=== PATIENT | male | born 1975 | race Hispanic/Latino ===

== ENCOUNTER 2018-02-07 12:13 | Emergency (ER) | payer SELFPAY ==
[~2018-02-07 12:13] MED LIST: AMLO1CAP12 PO; GLYB-228 PO; HYDR12.54 PO; LEVE750T4 PO
[2018-02-07] MEDS ORDERED: SODIUM CHLORIDE 0.9% 1000ML 1,000 ML IV ONE (12:55)
[2018-02-07] MEDS ORDERED: ONDANSETRON HCL MDV 20ML 2 MG/ML VIAL ONE (12:55)
[2018-02-07] MEDS ORDERED: MORPHINE SULFATE 4 MG/1ML SYG ONE ×2 (12:55→17:33)
[2018-02-07 13:17] LABS: BASOPHILS % (AUTO) 0.3 % (0.0-5.0); EOSINOPHILS % (AUTO) 0.2 % (0.0-8.0); HEMATOCRIT 45.6 % (42-54); LYMPHOCYTES % (AUTO) 8.3 % (21.0-51.0); MEAN CORPUSCULAR HEMOGLOBIN 32.1 pg (27.0-33.0); MEAN CORPUSCULAR HGB CONC 35.8 g/dL (32.0-36.0); MEAN CORPUSCULAR VOLUME 89.6 fL (79-99); NEUTROPHILS % (AUTO) 86.2 % (40.0-77.0); PLATELET COUNT (AUTO) 287 K/uL (130-400); RED BLOOD CELL COUNT(AUTO) 5.08 MIL/uL (4.50-6.20); RED CELL DISTRIBUTION WIDTH 13.1 % (11.0-15.5); WHITE BLOOD COUNT (AUTO) 13.3 K/uL (4.8-10.8)
[2018-02-07 13:31] LABS: ALBUMIN 3.9 g/dL (3.5-5.0); BILIRUBIN,TOTAL 0.9 mg/dL (0.2-1.0); CREATININE 1.1 mg/dL (0.5-1.5); POTASSIUM 4.4 mmol/L (3.5-5.1); TOTAL PROTEIN, SERUM 7.1 g/dL (6.0-8.3)
[2018-02-07] MEDS ORDERED: KETOROLAC TROMETHAMINE 15MG/ML ONE (16:24)
== END 2018-02-07 18:54 | disposition home or self-care (01) ==
LOC: EDH 12:13
DX: S43.101A Unspecified dislocation of right acromioclavicular joint, initial encounter (principal); S00.83XA Contusion of other part of head, initial encounter; G40.89 Other seizures; I10 Essential (primary) hypertension; E11.9 Type 2 diabetes mellitus without complications; E78.5 Hyperlipidemia, unspecified; W18.39XA Other fall on same level, initial encounter; Y93.89 Activity, other specified; Y92.89 Other specified places as the place of occurrence of the external cause; Y99.8 Other external cause status
CPT/HCPCS: 36415; 70450; 73030; 73200; 80053; 80177; 85025; 96361; 96372; 96374; 96375; 99285; J1885; J2270 ×2; J7030

== ENCOUNTER 2018-07-21 16:59 | Emergency (ER) | payer OTHER ==
[2018-07-21] MEDS ORDERED: ACETAMINOPHEN-CODEINE 300/30MG TAB ONE (17:35)
[2018-07-21] MEDS ORDERED: KETOROLAC TROMETHAMINE 60 MG/2 ML VIAL ONE (17:35)
== END 2018-07-21 17:55 | disposition home or self-care (01) ==
LOC: EDH 16:59
DX: K08.89 Other specified disorders of teeth and supporting structures (principal); E11.9 Type 2 diabetes mellitus without complications; E78.5 Hyperlipidemia, unspecified; I10 Essential (primary) hypertension
CPT/HCPCS: 96372; 99283; J1885

== ENCOUNTER 2018-10-11 13:35 | Emergency (ER) | payer OTHER ==
[2018-10-11] MEDS ORDERED: SODIUM CHLORIDE 0.9% 1000ML 1,000 ML IV ONE (14:01)
[2018-10-11 14:08] LABS: BASOPHILS % (AUTO) 1.2 % (0.0-5.0); EOSINOPHILS % (AUTO) 1.1 % (0.0-8.0); HEMATOCRIT 52.6 % (42-54); LYMPHOCYTES % (AUTO) 27.5 % (21.0-51.0); MEAN CORPUSCULAR HEMOGLOBIN 31.7 pg (27.0-33.0); MEAN CORPUSCULAR HGB CONC 35.5 g/dL (32.0-36.0); MEAN CORPUSCULAR VOLUME 89.3 fL (79-99); MONOCYTES % (AUTO) 5.7 % (3.0-13.0); NEUTROPHILS % (AUTO) 64.5 % (40.0-77.0); PLATELET COUNT (AUTO) 294 K/uL (130-400); RED BLOOD CELL COUNT(AUTO) 5.89 MIL/uL (4.50-6.20); WHITE BLOOD COUNT (AUTO) 6.4 K/uL (4.8-10.8)
[2018-10-11 14:30] LABS: CREATININE 0.9 mg/dL (0.5-1.5); POTASSIUM 4.2 mmol/L (3.5-5.1)
[2018-10-11] MEDS ORDERED: INSULIN HUMULIN R 100 UNIT/ML 3ML ONE (14:35)
[2018-10-11] MEDS ORDERED: ENALAPRILAT DIHYDRATE 1.25MG/ML 1ML VIAL IV ONE (14:56)
[2018-10-11] MEDS ORDERED: ONDANSETRON HCL 4 MG/2 ML VIAL ONE (14:56)
[2018-10-11 15:10] LABS: APPEARANCE,URINE Clear (CLEAR); BILIRUBIN,URINE Negative (NEGATIVE); COLOR,URINE Yellow (YELLOW); GLUCOSE, URINE (UA) >=1000 mg/dL (NEGATIVE); KETONES,URINE Negative (NEGATIVE); LEUKOCYTE ESTERASE ,URINE Negative (NEGATIVE); NITRATE,URINE Negative (NEGATIVE); OCCULT BLOOD,URINE Negative (NEGATIVE); PH,URINE 6.5 (5.0-8.0); PROTEIN,URINE POS 2+ (NEGATIVE); UROBILINOGEN,URINE 0.2 mg/dL (0.2-1.0)
[2018-10-11 15:22] LABS: AMPHET/METH SCREEN,URINE NEGATIVE (NEGATIVE); BARBITURATE SCREEN, URINE NEGATIVE (NEGATIVE); BENZODIAZEPINES SCREEN,URINE NEGATIVE (NEGATIVE); CANNABINOID SCREEN,URINE NEGATIVE (NEGATIVE); COCAINE SCREEN,URINE NEGATIVE (NEGATIVE); OPIATE SCREEN,URINE NEGATIVE (NEGATIVE); PHENCYCLIDINE SCREEN,URINE NEGATIVE (NEGATIVE)
[2018-10-11 15:23] LABS: BACTERIA,URINE None Seen /HPF (None Seen); RBC,URINE 0-1 /HPF (0-1); SQUAMOUS EPITHELIAL CELL,UR Rare /HPF (0-2); WBC,URINE 0-1 /HPF (0-1)
[2018-10-11] MEDS ORDERED: HYDROCODONE/ACETAMINOPHEN 5/325 MG TAB ONE (15:35)
== END 2018-10-11 17:03 | disposition home or self-care (01) ==
LOC: EDH 13:35
DX: E11.65 Type 2 diabetes mellitus with hyperglycemia (principal); E86.0 Dehydration; I10 Essential (primary) hypertension; E78.5 Hyperlipidemia, unspecified; Z87.891 Personal history of nicotine dependence
CPT/HCPCS: 36415; 70450; 80048; 80305; 81001; 82948; 85025; 96361; 96374; 96375; 99284; J1815; J2405; J3490; J7030

== ENCOUNTER 2019-05-12 12:57 | Emergency (ER) | payer MEDICAID, SELFPAY ==
[~2019-05-12 12:57] MED LIST changes: +AMLO-104 PO; -AMLO1CAP12 PO
[2019-05-12] MEDS ORDERED: FOSPHENYTOIN SODIUM 500 MG/10ML VIAL IJ ONE (13:20)
[2019-05-12] MEDS ORDERED: SODIUM CHLORIDE 0.9% 100 ML IV ONE (13:20)
[2019-05-12] MEDS ORDERED: SODIUM CHLORIDE 0.9% 1000ML 1,000 ML IV ONE (13:20)
[2019-05-12 13:48] LABS: AMPHET/METH SCREEN,URINE NEGATIVE (NEGATIVE); BARBITURATE SCREEN, URINE NEGATIVE (NEGATIVE); BENZODIAZEPINES SCREEN,URINE NEGATIVE (NEGATIVE); CANNABINOID SCREEN,URINE NEGATIVE (NEGATIVE); COCAINE SCREEN,URINE NEGATIVE (NEGATIVE); OPIATE SCREEN,URINE NEGATIVE (NEGATIVE); PHENCYCLIDINE SCREEN,URINE NEGATIVE (NEGATIVE)
[2019-05-12 14:06] LABS: BASOPHILS % (AUTO) 0.7 % (0.0-5.0); EOSINOPHILS % (AUTO) 0.6 % (0.0-8.0); HEMATOCRIT 47.8 % (42-54); LYMPHOCYTES % (AUTO) 16.4 % (21.0-51.0); MEAN CORPUSCULAR HEMOGLOBIN 32.1 pg (27.0-33.0); MEAN CORPUSCULAR HGB CONC 35.6 g/dL (32.0-36.0); MONOCYTES % (AUTO) 7.1 % (3.0-13.0); NEUTROPHILS % (AUTO) 75.2 % (40.0-77.0); PLATELET COUNT (AUTO) 293 K/uL (130-400); RED BLOOD CELL COUNT(AUTO) 5.31 MIL/uL (4.50-6.20); WHITE BLOOD COUNT (AUTO) 6.7 K/uL (4.8-10.8)
[2019-05-12 14:24] LABS: CREATININE 1.1 mg/dL (0.5-1.5); POTASSIUM 4.3 mmol/L (3.5-5.1)
[2019-05-12 14:28] LABS: ALBUMIN 3.9 g/dL (3.5-5.0); BILIRUBIN,TOTAL 1.1 mg/dL (0.2-1.0); TOTAL PROTEIN, SERUM 7.2 g/dL (6.0-8.3)
== END 2019-05-12 15:37 | disposition home or self-care (01) ==
LOC: EDH 12:57
DX: G40.909 Epilepsy, unspecified, not intractable, without status epilepticus (principal); I10 Essential (primary) hypertension; E11.9 Type 2 diabetes mellitus without complications; E78.5 Hyperlipidemia, unspecified
CPT/HCPCS: 36415; 70450; 80053; 80305; 82550; 85025; 93005; 96365; 96366; 99285; J7030; Q2009

== ENCOUNTER 2019-05-27 18:36 | Emergency (ER) | payer MEDICAID ==
[2019-05-27 19:14] LABS: BASOPHILS % (AUTO) 0.8 % (0.0-5.0); EOSINOPHILS % (AUTO) 1.2 % (0.0-8.0); HEMATOCRIT 45.6 % (42-54); LYMPHOCYTES % (AUTO) 15.3 % (21.0-51.0); MEAN CORPUSCULAR HEMOGLOBIN 32.5 pg (27.0-33.0); MEAN CORPUSCULAR HGB CONC 35.9 g/dL (32.0-36.0); MEAN CORPUSCULAR VOLUME 90.5 fL (79-99); MONOCYTES % (AUTO) 5.5 % (3.0-13.0); NEUTROPHILS % (AUTO) 77.2 % (40.0-77.0); PLATELET COUNT (AUTO) 251 K/uL (130-400); RED BLOOD CELL COUNT(AUTO) 5.04 MIL/uL (4.50-6.20); RED CELL DISTRIBUTION WIDTH 13.5 % (11.0-15.5); WHITE BLOOD COUNT (AUTO) 7.5 K/uL (4.8-10.8)
[2019-05-27] MEDS ORDERED: SODIUM CHLORIDE 0.9% 1000ML 1,000 ML IV ONE (19:21)
[2019-05-27 19:26] LABS: CREATININE 1.4 mg/dL (0.5-1.5); POTASSIUM 4.6 mmol/L (3.5-5.1)
[2019-05-27 19:30] LABS: ALBUMIN 4.1 g/dL (3.5-5.0); BILIRUBIN,DIRECT 0.1 mg/dL (0.0-0.3); BILIRUBIN,TOTAL 0.5 mg/dL (0.2-1.0); TOTAL PROTEIN, SERUM 7.6 g/dL (6.0-8.3)
[2019-05-27] MEDS ORDERED: ONDANSETRON HCL 4 MG/2 ML VIAL ONE (20:34)
[2019-05-27 20:57] LABS: APPEARANCE,URINE Clear (CLEAR); BILIRUBIN,URINE Negative (NEGATIVE); COLOR,URINE Yellow (YELLOW); GLUCOSE, URINE (UA) >=1000 mg/dL (NEGATIVE); KETONES,URINE Trace mg/dL (NEGATIVE); LEUKOCYTE ESTERASE ,URINE Negative (NEGATIVE); NITRATE,URINE Negative (NEGATIVE); OCCULT BLOOD,URINE Negative (NEGATIVE); PROTEIN,URINE POS 1+ mg/dL (NEGATIVE)
[2019-05-27] MEDS ORDERED: MORPHINE SULFATE 2 MG/ML 1ML SYG ONE (21:06)
[2019-05-27] MEDS ORDERED: SODIUM CHLORIDE 0.9% 500ML 500 ML IV ONE (21:07)
[2019-05-27 21:12] LABS: RBC,URINE 0-1 /HPF (0-1); SQUAMOUS EPITHELIAL CELL,UR None Seen /HPF (0-2); WBC,URINE 0-1 /HPF (0-1)
[2019-05-27 21:13] LABS: BACTERIA,URINE Rare /HPF (None Seen); SPERM,URINE Rare /HPF (None Seen)
== END 2019-05-27 23:08 | disposition home or self-care (01) ==
LOC: EDH 18:36 → EEVIPCON 18:36 → EDH 23:08
DX: S70.01XA Contusion of right hip, initial encounter (principal); S00.83XA Contusion of other part of head, initial encounter; S40.011A Contusion of right shoulder, initial encounter; G40.909 Epilepsy, unspecified, not intractable, without status epilepticus; R42 Dizziness and giddiness; E11.9 Type 2 diabetes mellitus without complications; E78.5 Hyperlipidemia, unspecified; I10 Essential (primary) hypertension; Z87.891 Personal history of nicotine dependence; Z79.899 Other long term (current) drug therapy; Z98.890 Other specified postprocedural states; W08.XXXA Fall from other furniture, initial encounter; Y93.89 Activity, other specified; Y92.098 Other place in other non-institutional residence as the place of occurrence of the external cause; Y99.8 Other external cause status
CPT/HCPCS: 36415; 70450; 71045; 72170; 73030; 80048; 80076; 80177; 81001; 83880; 85025; 93005; 96374; 96375; 99285; J2405; J7030; J7040

== ENCOUNTER → 2019-06-21 | Outpatient (CLI) | payer MEDICAID | END | disposition home or self-care (01) | LOC: RAH 08:40 | PROVIDERS: ATTEND Family Medicine | DX: M25.511 Pain in right shoulder (principal) | CPT/HCPCS: 73030 ==

== ENCOUNTER → 2020-05-20 | Outpatient (CLI) | payer MEDICAID ==
[~2020-05-20] MED LIST changes: -AMLO-104 PO; +ATOR40TA69 PO; +DULO30CA2 PO; +GLIP5TAB11 PO; -GLYB-228 PO; -HYDR12.54 PO; +ISOS20TA7 PO; +LISI-613 PO; +METF500S7 PO; +METO-391 PO; +PIOG30TA10 PO; +QUET25TA PO; +TICA90TA PO; +ZOLP10TA2 PO
== END | disposition home or self-care (01) ==
LOC: SHCH 11:00
PROVIDERS: ATTEND Internal Medicine Cardiovascular Disease
DX: I35.8 Other nonrheumatic aortic valve disorders (principal); I73.9 Peripheral vascular disease, unspecified; I10 Essential (primary) hypertension; I25.10 Atherosclerotic heart disease of native coronary artery without angina pectoris
CPT/HCPCS: 93306; 93356; 93925

== ENCOUNTER → 2020-05-22 | Outpatient (CLI) | payer MEDICAID ==
[~2020-05-22] VITALS: Ht 185.4 cm; Wt 101.2 kg
[~2020-05-22] MED LIST changes: +REGADENOSON 0.4 MG/5 ML PF SYG IVP SCH
== END | disposition home or self-care (01) ==
LOC: SHCH 08:03
PROVIDERS: ATTEND Internal Medicine Cardiovascular Disease
DX: I10 Essential (primary) hypertension (principal); R01.1 Cardiac murmur, unspecified
CPT/HCPCS: 78452; 93017; 96374; A9500 ×2; J2785

== ENCOUNTER → 2020-07-23 | Outpatient (CLI) | payer MEDICAID ==
[~2020-07-23] VITALS: Ht 185.4 cm; Wt 102.1 kg
[~2020-07-23] MED LIST changes: -REGADENOSON 0.4 MG/5 ML PF SYG IVP SCH; +SODIUM CHLORIDE 0.9% 1000ML 1,000 ML IV SCH
[2020-07-23 12:45] LABS: BASOPHILS % (AUTO) 0.7 % (0.0-5.0); HEMATOCRIT 49.1 % (42-54); LYMPHOCYTES % (AUTO) 20.4 % (21.0-51.0); MEAN CORPUSCULAR HEMOGLOBIN 31.4 pg (27.0-33.0); MEAN CORPUSCULAR HGB CONC 34.6 g/dL (32.0-36.0); MEAN CORPUSCULAR VOLUME 90.6 fL (79-99); MONOCYTES % (AUTO) 8.2 % (3.0-13.0); NEUTROPHILS % (AUTO) 68.4 % (40.0-77.0); PLATELET COUNT (AUTO) 253 K/uL (130-400); RED BLOOD CELL COUNT(AUTO) 5.42 MIL/uL (4.50-6.20); RED CELL DISTRIBUTION WIDTH 12.3 % (11.0-15.5); WHITE BLOOD COUNT (AUTO) 6.1 K/uL (4.8-10.8)
[2020-07-23 13:01] LABS: CREATININE 1.1 mg/dL (0.5-1.5); INR 0.95 (0.85-1.15); PARTIAL THROMBOPLASTIN TIME 26.2 SEC (26.3-35.5); POTASSIUM 4.3 mmol/L (3.5-5.1); PROTHROMBIN TIME 10.3 SEC (9.6-11.6)
[2020-07-23 13:04] LABS: APPEARANCE,URINE Clear (CLEAR); BILIRUBIN,URINE Negative (NEGATIVE); COLOR,URINE Yellow (YELLOW); GLUCOSE, URINE (UA) >=1000 mg/dL (NEGATIVE); KETONES,URINE Negative (NEGATIVE); LEUKOCYTE ESTERASE ,URINE Negative (NEGATIVE); NITRATE,URINE Negative (NEGATIVE); OCCULT BLOOD,URINE Negative (NEGATIVE); PROTEIN,URINE Negative (NEGATIVE)
[2020-07-23 13:11] LABS: BACTERIA,URINE Rare /HPF (None Seen); RBC,URINE 0-1 /HPF (0-1); SQUAMOUS EPITHELIAL CELL,UR Rare /HPF (0-2); WBC,URINE 0-1 /HPF (0-1)
--- NOTE | 2020-07-24 16:30 | NUR ---
RE: PROCEDURE CANCELED INFORMED CHICO MARTÍNEZ THAT PATIENT IS IN ER RIGHT NOW DUE TO EPILEPTIC SEIZURE. ORDERS RECEIVED TO CANCEL LEFT HEART CATH PROCEDURE.
== END | disposition home or self-care (01) ==
LOC: DAH 10:00 → EDSTATUS 07-25 10:00
PROVIDERS: ATTEND Internal Medicine Cardiovascular Disease
DX: Z01.810 Encounter for preprocedural cardiovascular examination (principal); I25.10 Atherosclerotic heart disease of native coronary artery without angina pectoris; G40.909 Epilepsy, unspecified, not intractable, without status epilepticus; Z79.01 Long term (current) use of anticoagulants; Z53.8 Procedure and treatment not carried out for other reasons; Z79.899 Other long term (current) drug therapy; Z79.82 Long term (current) use of aspirin
CPT/HCPCS: 36415; 71045; 80048; 81001; 85025; 85610; 85730; 93005

== ENCOUNTER 2020-07-24 15:13 | Observation (INO) | payer MEDICAID ==
[~2020-07-24] VITALS: Ht 185.4 cm; Wt 102.1 kg
[~2020-07-24 15:13] MED LIST changes: -SODIUM CHLORIDE 0.9% 1000ML 1,000 ML IV SCH
[2020-07-24 15:25] LABS: BASOPHILS % (AUTO) 0.6 % (0.0-5.0); EOSINOPHILS % (AUTO) 1.7 % (0.0-8.0); HEMATOCRIT 55.1 % (42-54); LYMPHOCYTES % (AUTO) 29.9 % (21.0-51.0); MEAN CORPUSCULAR HEMOGLOBIN 31.8 pg (27.0-33.0); MEAN CORPUSCULAR HGB CONC 33.2 g/dL (32.0-36.0); MEAN CORPUSCULAR VOLUME 95.7 fL (79-99); MONOCYTES % (AUTO) 8.6 % (3.0-13.0); PLATELET COUNT (AUTO) 311 K/uL (130-400); RED BLOOD CELL COUNT(AUTO) 5.76 MIL/uL (4.50-6.20); RED CELL DISTRIBUTION WIDTH 12.6 % (11.0-15.5); WHITE BLOOD COUNT (AUTO) 10.9 K/uL (4.8-10.8)
[2020-07-24 15:36] LABS: CREATININE 1.5 mg/dL (0.5-1.5); INR 0.98 (0.85-1.15); PARTIAL THROMBOPLASTIN TIME 26.1 SEC (26.3-35.5); POTASSIUM 3.6 mmol/L (3.5-5.1); PROTHROMBIN TIME 10.6 SEC (9.6-11.6)
[2020-07-24 15:46] LABS: ALBUMIN 4.6 g/dL (3.5-5.0); BILIRUBIN,TOTAL 0.7 mg/dL (0.2-1.0)
[2020-07-24 16:17] LABS: APPEARANCE,URINE Clear (CLEAR); BILIRUBIN,URINE Negative (NEGATIVE); COLOR,URINE Yellow (YELLOW); GLUCOSE, URINE (UA) >=1000 mg/dL (NEGATIVE); KETONES,URINE Trace mg/dL (NEGATIVE); LEUKOCYTE ESTERASE ,URINE Negative (NEGATIVE); NITRATE,URINE Negative (NEGATIVE); OCCULT BLOOD,URINE Trace (NEGATIVE); PROTEIN,URINE POS 1+ mg/dL (NEGATIVE)
[2020-07-24] MEDS ORDERED: NITROGLYCERIN 1GM/1 INCH PACKET TD ONE (16:18)
[2020-07-24] MEDS ORDERED: ASPIRIN 325 MG TABLET ONE (16:18)
[2020-07-24 16:24] LABS: BACTERIA,URINE Rare /HPF (None Seen); RBC,URINE None Seen /HPF (0-1); SQUAMOUS EPITHELIAL CELL,UR None Seen /HPF (0-2); WBC,URINE 0-1 /HPF (0-1)
[2020-07-24 16:25] LABS: AMPHET/METH SCREEN,URINE NEGATIVE (NEGATIVE); BARBITURATE SCREEN, URINE NEGATIVE (NEGATIVE); BENZODIAZEPINES SCREEN,URINE NEGATIVE (NEGATIVE); CANNABINOID SCREEN,URINE NEGATIVE (NEGATIVE); COCAINE SCREEN,URINE NEGATIVE (NEGATIVE); OPIATE SCREEN,URINE NEGATIVE (NEGATIVE); PHENCYCLIDINE SCREEN,URINE NEGATIVE (NEGATIVE)
[2020-07-24] MEDS ORDERED: LEVETIRACETAM 500 MG TABLET PO ONE (17:02)
[2020-07-24] MEDS ORDERED: METOPROLOL TARTRATE 1 MG/ML 5ML VIAL IV ONE (17:02)
[2020-07-24] MEDS ORDERED: LACTULOSE 20 GM/30 ML UDCUP PO PRN (18:30)
[2020-07-24] MEDS ORDERED: LIDOCAINE HCL-MPF 1% 2ML VIAL IV PRN (18:30)
[2020-07-24] MEDS ORDERED: ONDANSETRON HCL 4 MG/2 ML VIAL IV PRN (18:30)
[2020-07-24] MEDS ORDERED: NITROGLYCERIN 0.4 MG SL TAB SL PRN (18:30)
[2020-07-24] MEDS ORDERED: DiphenhydrAMINE HCL 50 MG/ML VIAL IV PRN (18:30)
[2020-07-24] MEDS ORDERED: POTASSIUM CHLORIDE 20 MEQ ERTAB PO PRN (18:30)
[2020-07-24] MEDS ORDERED: LABETALOL HCL 5 MG/ML 20ML VIAL IV PRN (18:30)
[2020-07-24] MEDS ORDERED: POTASSIUM CHLORIDE 10% ELIXIR 20 MEQ/15 ML UDCUP PO PRN (18:30)
[2020-07-24] MEDS ORDERED: SODIUM CHLORIDE 0.9% 1000ML 1,000 ML IV SCH (18:30)
[2020-07-24] MEDS ORDERED: ZOLPIDEM TARTRATE 5 MG TAB PO PRN (18:30)
[2020-07-24] MEDS ORDERED: POTASSIUM CHLORIDE 20MEQ/100ML 100 ML IV PRN (18:30)
[2020-07-24] MEDS ORDERED: MORPHINE SULFATE 2 MG/ML 1ML SYG IV PRN (18:30)
[2020-07-24] MEDS ORDERED: MORPHINE SULFATE 2 MG/ML 1ML SYG ONE (20:11)
[2020-07-24] MEDS ORDERED: FAMOTIDINE/PF 20 MG/2 ML VIAL IV ONE (20:12)
[2020-07-24] MEDS ORDERED: INSULIN HUMULIN R 100 UNIT/ML 3ML ONE (20:13)
[2020-07-24] MEDS ORDERED: INSULIN HUMULIN R 100 UNIT/ML 3ML SQ SCH (21:00)
[2020-07-24] MEDS ORDERED: FAMOTIDINE 20MG TAB 20 MG TAB PO SCH (21:00)
[2020-07-25] MEDS ORDERED: LEVETIRACETAM 250 MG TABLET PO SCH (09:00)
== END 2020-07-25 00:48 | disposition left against medical advice (07) ==
LOC: EDH 15:13 → EDHIP 17:48 → 3AH 22:16
PROVIDERS: ADMIT Internal Medicine; ATTEND Internal Medicine
DX: G40.909 Epilepsy, unspecified, not intractable, without status epilepticus (principal); E11.9 Type 2 diabetes mellitus without complications; E78.5 Hyperlipidemia, unspecified; I10 Essential (primary) hypertension; R77.8 Other specified abnormalities of plasma proteins; E66.01 Morbid (severe) obesity due to excess calories; F14.10 Cocaine abuse, uncomplicated; I25.10 Atherosclerotic heart disease of native coronary artery without angina pectoris
CPT/HCPCS: 36415; 71045; 80053; 80177; 80305; 81001; 82550; 82948; 83880; 84484 ×2; 85025; 85610; 85730; 93005 ×2; 99285; G0378 ×6; J1815; J3490 ×2

== ENCOUNTER 2020-09-04 11:07 | Day surgery (SDC) | payer MEDICAID ==
[2020-09-03 11:40] LABS: BASOPHILS % (AUTO) 0.6 % (0.0-5.0); HEMATOCRIT 49.4 % (42-54); LYMPHOCYTES % (AUTO) 19.2 % (21.0-51.0); MEAN CORPUSCULAR HEMOGLOBIN 31.4 pg (27.0-33.0); MEAN CORPUSCULAR HGB CONC 34.8 g/dL (32.0-36.0); MEAN CORPUSCULAR VOLUME 90.3 fL (79-99); MONOCYTES % (AUTO) 4.8 % (3.0-13.0); NEUTROPHILS % (AUTO) 73.1 % (40.0-77.0); PLATELET COUNT (AUTO) 300 K/uL (130-400); RED BLOOD CELL COUNT(AUTO) 5.47 MIL/uL (4.50-6.20); RED CELL DISTRIBUTION WIDTH 11.8 % (11.0-15.5); WHITE BLOOD COUNT (AUTO) 8.7 K/uL (4.8-10.8)
[2020-09-03 11:47] LABS: APPEARANCE,URINE Clear (CLEAR); BILIRUBIN,URINE Negative (NEGATIVE); COLOR,URINE Yellow (YELLOW); GLUCOSE, URINE (UA) >=1000 mg/dL (NEGATIVE); KETONES,URINE Negative (NEGATIVE); LEUKOCYTE ESTERASE ,URINE Negative (NEGATIVE); NITRATE,URINE Negative (NEGATIVE); OCCULT BLOOD,URINE Negative (NEGATIVE); PROTEIN,URINE Negative (NEGATIVE); UROBILINOGEN,URINE 0.2 mg/dL (0.2-1.0)
[2020-09-03 11:49] LABS: CREATININE 1.2 mg/dL (0.5-1.5); POTASSIUM 4.5 mmol/L (3.5-5.1)
[2020-09-03 12:07] LABS: INR 0.95 (0.85-1.15); PARTIAL THROMBOPLASTIN TIME 24.5 SEC (26.3-35.5); PROTHROMBIN TIME 10.3 SEC (9.6-11.6)
[2020-09-03 12:08] LABS: BACTERIA,URINE Rare /HPF (None Seen); RBC,URINE 0-1 /HPF (0-1); SQUAMOUS EPITHELIAL CELL,UR 0-2 /HPF (0-2); WBC,URINE 0-1 /HPF (0-1)
[2020-09-04] VITALS (22 sets, daily range): BP systolic 103–142; BP diastolic 40–91
[~2020-09-04] VITALS: Ht 185.4 cm; Wt 98.8 kg
[2020-09-04] MEDS ORDERED: SODIUM CHLORIDE 0.9% 1000ML 1,000 ML IV ONE (12:26)
[2020-09-04] MEDS ORDERED: SODIUM BICARB 50MEQ 50ML VIAL 50 ML ONE (12:50)
[2020-09-04] MEDS ORDERED: NICARDIPINE HCL 25 MG/10 ML ML IV ONE (12:51)
[2020-09-04] MEDS ORDERED: IOHEXOL-350 50ML VIAL IV ONE (12:51)
[2020-09-04] MEDS ORDERED: HEPARIN SODIUM 1000UNIT/ML 10ML VIAL ONE (12:51)
[2020-09-04] MEDS ORDERED: NITROGLYCERIN 2 MG/VIAL VIAL IV ONE (12:51)
[2020-09-04] MEDS ORDERED: IOHEXOL-350 75 ML VIAL IV ONE (12:51)
[2020-09-04] MEDS ORDERED: MEPERIDINE-PF 25 MG/ML SYG ONE ×2 (12:51→13:19)
[2020-09-04] MEDS ORDERED: IOHEXOL 350 MG/ML 100ML INFUS..BTL IV ONE (12:51)
[2020-09-04] MEDS ORDERED: LIDOCAINE HCL 2% 20ML ONE (12:52)
[2020-09-04] MEDS ORDERED: MIDAZOLAM HCL 1 MG/ML 2ML VIAL ONE ×3 (12:52→15:00)
[2020-09-04] MEDS ORDERED: LITH300T4 PO (13:13)
[2020-09-04] MEDS ORDERED: LISI40TA4 PO (13:13)
[2020-09-04] MEDS ORDERED: METF-446 PO (13:13)
[2020-09-04] MEDS ORDERED: EMPA25TA PO (13:13)
[2020-09-04] MEDS ORDERED: METO25TA6 PO (13:13)
[2020-09-04] MEDS ORDERED: AEC81 PO (13:13)
[2020-09-04] MEDS ORDERED: PROPOFOL 1000 MG/100 ML 100 ML IV ONE (13:29)
[2020-09-04] MEDS ORDERED: PHENYLEPHRINE HCL 10 MG/ML 1ML VIAL IV ONE (13:47)
[2020-09-04] MEDS ORDERED: ROCURONIUM BROMIDE 10MG/1ML 5ML VL ONE (14:06)
[2020-09-04] MEDS ORDERED: NEOSTIGMINE 5MG/5ML SYR IV ONE (14:24)
[2020-09-04] MEDS ORDERED: GLYCOPYRROLATE 0.2 MG/ML 5 ML VIAL ONE (14:25)
[2020-09-04] MEDS ORDERED: SUGAMMADEX SODIUM 200 MG/2 ML VIAL IV ONE (14:34)
[2020-09-04] MEDS ORDERED: SODIUM CHLORIDE 0.9% 1000ML 1,000 ML IV SCH (14:45)
[2020-09-04] MEDS ORDERED: MORPHINE SULFATE 2 MG/ML 1ML SYG ONE (15:25)
--- NOTE | 2020-09-04 15:25 | NUR ---
2mg of morphine given slow IV push as ordered by Luis Wise [employer]ROL T[employer]ER DRIVER
--- NOTE | 2020-09-04 15:52 | NUR ---
12 lead EKG being done at this time
[2020-09-04] MEDS ORDERED: SUCCINYLCHOLINE 200MG/10ML SYR ONE (15:55)
[2020-09-04] MEDS ORDERED: PROPOFOL 10 MG/ML 20ML VIAL IV ONE (15:55)
[2020-09-04] MEDS ORDERED: PHYSOSTIGMINE SALICYLATE 1 MG/ML 2 ML AMP IVP SCH (16:00)
--- NOTE | 2020-09-04 16:15 | NUR ---
PT ARRIVES FROM PACU- C/O PAIN TO RT SHOULDER RATED A "9" . DR WILL AND VANESSA CAMPOS WERE ALREADY AWARE. WILL CONTINUE OBSERVE AND FOLLOW ORDERS
[2020-09-04] MEDS ORDERED: HYDROCODONE/ACETAMINOPHEN 5/325 MG TAB PO PRN ×2 (16:30)
--- NOTE | 2020-09-04 16:30 | NUR ---
DR WILL NOTIFIED ABOUT RT SHOULDER PAIN. NO ARMPIT SWELLING. SOME DISCOMFORT WITH ROM. GOOD DISTAL PULSES TO RT HAND. NO HEMATOMA OR BLEEDING TO RT RADIAL PUNCTURE. TR BAND DEFLATION PROTOCOL BEGAN
--- NOTE | 2020-09-04 17:11 | NUR ---
PT EXPRESSES HE IS NOW HAVING RELIEF OF HIS SHOULDER PAIN. I HAVE GIVEN HIM A FOOD TRAY THAT HE ATE BY HIMSELF. GIVEN WATER AND ALL MY INTERVENTIONS WERE EXPLAINED TO HIM. HE IS NOW MORE CALM AND EXHIBITS APPROPRIATE BEHAVIORS. I ALSO CALLED HIS TO GIVE HER AN UPDATE.
--- NOTE | 2020-09-04 18:38 | NUR ---
PAIN TO RT SHOULDER RESOLVED. PT OUT OF BED X 1 TO VOID. NO SOB OR CHEST PAIN. IN ANTICIPATION I GAVE PT PRINTED AND VERBAL DISCHARGE INSTRUCTIONS . VERBALIZES UNDERSTANDING. NO HEMATOMA OR BLEEDING TO RT WRIST PUNCTURE SITE. DRESSING CLEAN AND DRY
--- NOTE | 2020-09-04 20:33 | NUR ---
DISCHARGED HOME TO CR VIA WHEELCHAIR . IV REMOVED. RT WRIST DRESSING CLEAN DRY AND INTACT. NO HEMATOMA OR BLEEDING RT WRIST. PRINTED AND VERBAL DISCHARGE INSTRUCTIONS GIVEN TO PT. VERBALIZED UNDERSTANDING. NO CHEST [PAIN OR SOB
[2020-09-05] MEDS ORDERED: SODIUM CHLORIDE 0.9% 500ML 500 ML IV SCH (05:00)
== END 2020-09-04 20:40 | disposition home or self-care (01) ==
LOC: DAH 11:07
PROVIDERS: ATTEND Internal Medicine Cardiovascular Disease
DX: I25.119 Atherosclerotic heart disease of native coronary artery with unspecified angina pectoris (principal); I10 Essential (primary) hypertension; E11.9 Type 2 diabetes mellitus without complications; G40.909 Epilepsy, unspecified, not intractable, without status epilepticus; I25.2 Old myocardial infarction; F31.9 Bipolar disorder, unspecified; E78.5 Hyperlipidemia, unspecified; Z95.5 Presence of coronary angioplasty implant and graft; Z79.82 Long term (current) use of aspirin; Z79.84 Long term (current) use of oral hypoglycemic drugs; Z79.899 Other long term (current) drug therapy; Z79.01 Long term (current) use of anticoagulants
CPT/HCPCS: 36415; 71045; 80048; 81001; 82948 ×2; 85025; 85610; 85730; 93005 ×2; 93458; 94002; A4215; A4216; A4221; A4222; A4223 ×3; A4606; A4663; A6260; C1713; C1769 ×3; C1887; C1894; C9600; J0330; J1644 ×3; J2175 ×2; J2250 ×3; J2370; J2704 ×2; J2710; J3490 ×6; J7030 ×2; Q9965; Q9967 ×3

== ENCOUNTER 2021-11-15 17:48 | Emergency (ER) | payer MEDICAID, OTHER ==
[~2021-11-15] VITALS: Ht 185.4 cm; Wt 88.5 kg
[~2021-11-15 17:48] MED LIST changes: +AEC81 PO; -DULO30CA2 PO; +EMPA25TA PO; -GLIP5TAB11 PO; -ISOS20TA7 PO; -LISI-613 PO; +LISI40TA9 PO; +LITH300T4 PO; +METF-446 PO; -METF500S7 PO; -METO-391 PO; +METO25TA6 PO; -QUET25TA PO; -ZOLP10TA2 PO
[2021-11-15 19:35] LABS: BASOPHILS % (AUTO) 0.5 % (0.0-5.0); EOSINOPHILS % (AUTO) 0.3 % (0.0-8.0); HEMATOCRIT 50.2 % (42-54); LYMPHOCYTES % (AUTO) 9.7 % (21.0-51.0); MEAN CORPUSCULAR HGB CONC 37.3 g/dL (32.0-36.0); MEAN CORPUSCULAR VOLUME 88.7 fL (79-99); MONOCYTES % (AUTO) 5.5 % (3.0-13.0); NEUTROPHILS % (AUTO) 83.7 % (40.0-77.0); PLATELET COUNT (AUTO) 264 K/uL (130-400); RED BLOOD CELL COUNT(AUTO) 5.66 MIL/uL (4.50-6.20); RED CELL DISTRIBUTION WIDTH 12.3 % (11.0-15.5); WHITE BLOOD COUNT (AUTO) 11.5 K/uL (4.8-10.8)
[2021-11-15 19:46] LABS: CREATININE 1.2 mg/dL (0.5-1.5); POTASSIUM 4.3 mmol/L (3.5-5.1)
[2021-11-15 19:51] LABS: ALBUMIN 3.9 g/dL (3.5-5.0); BILIRUBIN,TOTAL 0.5 mg/dL (0.2-1.0); PHENYTOIN (DILANTIN) 0.6 mcg/mL (10.0-20.0); TOTAL PROTEIN, SERUM 7.4 g/dL (6.0-8.3)
[2021-11-15 21:24] LABS: APPEARANCE,URINE Clear (CLEAR); BILIRUBIN,URINE Negative (NEGATIVE); COLOR,URINE Yellow (YELLOW); GLUCOSE, URINE (UA) >=1000 mg/dL (NEGATIVE); KETONES,URINE Trace mg/dL (NEGATIVE); LEUKOCYTE ESTERASE ,URINE Negative (NEGATIVE); NITRATE,URINE Negative (NEGATIVE); OCCULT BLOOD,URINE Negative (NEGATIVE); PH,URINE 5.5 (5.0-8.0); PROTEIN,URINE 300 mg/dL (NEGATIVE)
[2021-11-15 21:39] LABS: BACTERIA,URINE Rare /HPF (None Seen); RBC,URINE 0-1 /HPF (0-1); SQUAMOUS EPITHELIAL CELL,UR Rare /HPF (0-2); WBC,URINE 0-1 /HPF (0-1)
[2021-11-15 22:03] VITALS: BP 175/94
[2021-11-15] MEDS ORDERED: LEVE1000 PO (22:04)
== END 2021-11-15 22:32 | disposition left against medical advice (07) ==
LOC: EDH 17:48
DX: G40.909 Epilepsy, unspecified, not intractable, without status epilepticus (principal); E11.9 Type 2 diabetes mellitus without complications; I10 Essential (primary) hypertension; Z95.0 Presence of cardiac pacemaker; Z79.82 Long term (current) use of aspirin; Z79.899 Other long term (current) drug therapy; Z79.84 Long term (current) use of oral hypoglycemic drugs
CPT/HCPCS: 36415; 80053; 80185; 81001; 85025